=== PATIENT | female | born 1945 | race Caucasian/White ===

== ENCOUNTER 2018-06-25 21:57 | Emergency (ER) | payer MEDICARE, OTHER ==
[~2018-06-25] VITALS: Ht 160 cm; Wt 67.6 kg
[2018-06-25] MEDS ORDERED: LIDOCAINE 1% VIAL ONE (22:10)
[2018-06-25] MEDS ORDERED: WATER ONE (22:11)
--- NOTE | 2018-06-25 22:30 | NUR ---
SUTURES DR WILL AT BEDSIDE TO FLUSH AND SUTURE LACERATION. FLUSHED EXTENSIVELY WITH BETADINE AND SALINE 15 SUTURES TO APPROXIMATE ALL EDGES
[2018-06-25 22:31] VITALS: BP 135/74
[2018-06-25] MEDS ORDERED: KEFLEX PO ONE (22:44)
[2018-06-25] MEDS ORDERED: TYLENOL #3 PO ONE (22:44)
[2018-06-25] MEDS ORDERED: TYLENOL #3 PO STA (22:45)
[2018-06-25] MEDS ORDERED: TRIPLE ANTIBIOTIC OINTMENT TP ONE (22:47)
--- NOTE | 2018-06-25 22:50 | NUR ---
WOUND CARE CLEANSED WITH SALINE, APPLIED NEOSPORIN TO SUTURE LINE COVERED WITH OPTIFOAM GENTLE BORDER VERBAL WOUND INSTUCTIONS GIVEN TO PATIENT
--- NOTE | 2018-06-25 22:52 | ER.PDOC ---
General Chief Complaint: Extremities Stated Complaint: LEG LAC Time seen by MD: 22:00 Source: patient, family Exam Limitations: no limitations History of Present Illness Initial Comments 72 year old white female with left leg laceration. Tripped on a lawnmower and sustained calf injury. Tetanus shot is up to date. Incident happened less than an hour ago Onset: just prior to arrival Where: home Context: fall Severity: moderate Allergies: Coded Allergies: Latex, Natural Rubber (Verified Allergy, Severe, Anaphylaxis Shock, ) Past Medical History Medical History: COPD Surgical History: breast augmentation, cancer surgery LMP (females 10-50): postmenopause Social History Smoking: less than 1 pack/day Alcohol Use: none Drug Use: none Review of Systems Constitutional: no symptoms reported EENTM: no symptoms reported Respiratory: no symptoms reported Cardiovascular: no symptoms reported Gastrointestinal: no symptoms reported Genitourinary: no symptoms reported Musculoskeletal: see HPI Skin: no symptoms reported Psychiatric/Neurological: no symptoms reported Physical Exam General Appearance: Alert, No Apparent Distress Foot: nml inspection, non-tender, nml color/temp, skin intact Ankle: nml inspection, non-tender, nml ROM, no joint swelling, skin intact Knee: nml inspection, non-tender, nml ROM, no joint swelling Thigh/Hip: nml inspection 1 - avulsed laceration 12 cm total Gait: antalgic gait Neuro/Vasc/Tendon: sensation nml, motor nml, no vascular compromise, tendon function nml Skin: warm/dry Head/ENT: nml inspection, pharynx nml Neck/Back: nml inspection, non-tender Abdomen: non-tender, pelvis stable ED LACERATION WOUND REPAIR Wound Location & Length (Requi: left calf Wound Length (cm): 12 Wound cleaned: betadine Distal NVT: neuro intact, vasc intact Anesthesia type: local Anesthesia: 1% Lidocaine Wound's Depth, Shape: flap Wound Explored: no foreign body removed Tendon Intact: Yes Wound Debrided: minimal Wound Repaired With: sutures Suture Size/Type: 4:0, ethilon Suture Style: running Number of Sutures: 15 Sterile Dressing Applied?: Yes Departure Time of Disposition: 22:50 Disposition: 01 HOME, SELF-CARE Impression: Primary Impression: Laceration of leg Qualified Codes: S81.812A - Laceration without foreign body, left lower leg, initial encounter Condition: Stable Referrals: PCP,UNKNOWN (PCP) PRIMARY CARE PROVIDER Comments Tylenol #3 Keflex Watch for signs and symptoms of infection Keep area dry for two days Follow up PCP RTER prn Remove stitches in 10 days Duration or Time Spent with Pa: JOE HESS MD Jun 25, 2018 22:52
[2018-06-25] MEDS ORDERED: KEFLEX PO SCH (23:00)
[2018-06-25 23:01] VITALS: BP 135/74
== END 2018-06-25 23:00 | disposition home or self-care (01) ==
LOC: ER 21:57
DX: S81.812A Laceration without foreign body, left lower leg, initial encounter (principal); J44.9 Chronic obstructive pulmonary disease, unspecified; F17.210 Nicotine dependence, cigarettes, uncomplicated; Z98.890 Other specified postprocedural states; Z91.040 Latex allergy status; W01.198A Fall on same level from slipping, tripping and stumbling with subsequent striking against other object, initial encounter; Y93.89 Activity, other specified; Y92.098 Other place in other non-institutional residence as the place of occurrence of the external cause; Y99.8 Other external cause status
CPT/HCPCS: 12004; 99283; J2001; J3490

== ENCOUNTER 2018-10-10 13:50 | Emergency (ER) | payer MEDICARE, OTHER ==
[~2018-10-10] VITALS: Ht 160 cm; Wt 65.8 kg
[2018-10-10 14:21] VITALS: BP 126/57
--- NOTE | 2018-10-10 14:52 | ER.PDOC ---
General Chief Complaint: Nausea,Vomiting,Diarrhea Stated Complaint: DIARRHEA Time seen by MD: 14:46 Source: patient Exam Limitations: no limitations History of Present Illness Initial Comments Diarrhea for about 4 weeks. No vomiting or abdominal pain. Stools are formed but 7-8 times a day in small quantities. Severity/Quality: moderate Prior symptoms/Treatment: Similar symptoms previous Allergies: Coded Allergies: Latex, Natural Rubber (Verified Allergy, Severe, Anaphylaxis Shock, ) Vital Signs First Vital Signs Date Time Temp Pulse Resp B/P (MAP) Pulse Ox O2 Delivery O2 Flow Rate FiO2 10/10/18 14:17 98.3 100 16 98.3 10/10/18 14:17 95 Room Air 10/10/18 14:21 126/57 (80) Last Vital Signs Date Time Temp Pulse Resp B/P (MAP) Pulse Ox O2 Delivery O2 Flow Rate FiO2 10/10/18 14:21 98.3 100 16 126/57 (80) 95 Room Air 98.3 Past Medical History Medical History: cancer, coronary artery disease Surgical History: breast augmentation, cancer surgery Social History Smoking: greater than 1 pack/day Alcohol Use: none Drug Use: none Constitutional: no symptoms reported EENTM: no symptoms reported Respiratory: no symptoms reported Cardiovascular: no symptoms reported Gastrointestinal: see HPI Genitourinary: no symptoms reported All Other Systems: Reviewed and Negative Physical Exam General Appearance: No Apparent Distress, WD/WN Neck: Non-Tender, Full Range of Motion, Supple, Normal Inspection Respiratory: chest non-tender, lungs clear, normal breath sounds, no respiratory distress, no accessory muscle use Cardiovascular: Normal Peripheral Pulses, Regular Rate, Rhythm, No Edema, No Gallop, No JVD, No Murmur Gastrointestinal: Normal Bowel Sounds, Non Tender, Soft Back: Normal Inspection, No CVA Tenderness, No Vertebral Tenderness Extremities: Normal Range of Motion, Non-Tender, Normal Inspection, No Pedal Edema, No Calf Tenderness, Normal Capillary Refill, Pelvis Stable 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 as Tested, No Motor/Sensory Deficits, Alert, Normal Mood/Affect, Oriented x 3 Skin: Normal Color, Warm/Dry Results/Orders Results/Orders Laboratory Tests Test 10/10/18 14:39 10/10/18 14:57 Urine Collection Type UNKNOWN Urine Color GEORGINA (YELLOW) Urine Appearance CLEAR (CLEAR) Urine Bilirubin NEGATIVE MG/DL (NEGATIVE) Urine Ketones NEGATIVE (NEGATIVE) Urine Specific [place] 1.015 (1.005-1.035) Urine pH 6 (5.0-6.0) Urine Protein 100 mg/dL (NEGATIVE) Urine Urobilinogen 4.0 (NEGATIVE) Urine Nitrate NEGATIVE (NEGATIVE) Urine Leukocyte Esterase 100/ul 1+ (NEGATIVE) Urine Blood 50 2+ (NEGATIVE) Urine RBC 5-10 RBC/HPF (NONE SEEN) Urine WBC 2-5 WBC/HPF (0-2) Urine Squamous Epithelial Cells MANY #/HPF (FEW) Urine Bacteria MODERATE (NONE SEEN) Urine Coarse Granular Casts 2-5 #/LPF Urine Glucose NORMAL (NEGATIVE) White Blood Count 23.7 10^3/uL (4.5-11.0) Red Blood Count 6.39 10^6/uL (4.00-5.20) Hemoglobin 18.4 g/dL (12.0-15.0) Hematocrit 55.0 % (36.0-46.0) Mean Corpuscular Volume 86.1 fL (78-100) Mean Corpuscular Hemoglobin 28.8 pg (26-34) Mean Corpuscular Hemoglobin Concent 33.5 g/dL (33-37) Red Cell Distribution Width 14.7 % (11.5-14.5) Platelet Count 243 10^3/uL (150-400) Mean Platelet Volume 9.5 fL (7.8-11.0) Neutrophils (%) (Auto) 92.8 % (41.0-85.0) Lymphocytes (%) (Auto) 1.2 % (24.0-44.0) Monocytes (%) (Auto) 4.4 % (5.0-12.0) Neutrophils # (Auto) 22.0 10^3/uL (1.8-7.7) Lymphocytes # (Auto) 0.3 10^3/uL (1.0-4.8) Monocytes # (Auto) 1.0 10^3/uL (0.3-0.8) Absolute Immature Granulocyte (auto 0.32 10^3 u/L (0-2) Eosinophils % 0.3 % (0.0-5.0) Basophils % 0.0 % (0.0-0.2) Basophils # 0.0 10^3/uL (0.0-0.1) Eosinophil Count 0.1 10^3/uL (0.0-0.2) Sodium Level 128 mmol/L (132-145) Potassium Level 3.0 mmol/L (3.6-5.2) Chloride Level 87.0 mmol/L (96-109) Carbon Dioxide Level 34.8 mmol/L (20.0-32) Anion Gap 9.2 Blood Urea Nitrogen 14 mg/dL (7-18) Creatinine 0.87 mg/dL (0.59-1.40) Estimated GFR () 77.2 (>/=60) BUN/Creatinine Ratio 16.0 Glucose Level 132 mg/dL (70-110) Calcium Level 8.9 mg/dL (8.4-10.5) Total Bilirubin 1.0 mg/dL (0.2-1.0) Aspartate Amino Transf (AST/SGOT) 13 U/L (0-35) Alanine Aminotransferase (ALT/SGPT) 21 U/L (12-78) Alkaline Phosphatase 89 U/L (50-136) Total Protein 6.1 g/dL (6.4-8.2) Albumin 2.3 g/dL (3.4-5.0) Globulin 3.8 Percent Immature Gran (Cell Imm) 1.30 % (0.00-0.50) Progress Progress Patient declined to have a CT scan of the abdomen/pelvis Patient declined admission, signed and left against medical advice. Patient understands that leaving AMA may result in sepsis, worsening condition and . Gave him a script for Cipro, Flagyl and Lomotil. Departure Time of Disposition: 16:10 Disposition: 07 AGAINST MEDICAL ADVICE Impression: Primary Impression: Intractable diarrhea Additional Impression: Leukocytosis Condition: Against Medical Advice Referrals: PCP,UNKNOWN (PCP) PRIMARY CARE PROVIDER Duration or Time Spent with Pa: 60 mins Problem Qualifiers Additional Impression: Leukocytosis Leukocytosis type: unspecified Qualified Codes: D72.829 - Elevated white blood cell count, unspecified CAYETANO CARMONA MD Oct 10, 2018 14:52
[2018-10-10 15:04] LABS: EOSINOPHIL # 0.1 10^3/uL (0.0-0.2); EOSINOPHIL % 0.3 % (0.0-5.0); HEMOGLOBIN 18.4 g/dL (12.0-15.0); LYMPHOCYTES # 0.3 10^3/uL (1.0-4.8); LYMPHOCYTES % 1.2 % (24.0-44.0); MEAN CELL HGB 28.8 pg (26-34); MEAN CELL HGB CONCENTRATION 33.5 g/dL (33-37); MEAN CORP VOLUME 86.1 fL (78-100); MEAN PLATELET VOLUME 9.5 fL (7.8-11.0); MONOCYTES % 4.4 % (5.0-12.0); NEUTROPHILS % 92.8 % (41.0-85.0); RED CELL DISTRIBUTION WIDTH 14.7 % (11.5-14.5); WHITE BLOOD CELL 23.7 10^3/uL (4.5-11.0)
[2018-10-10 15:05] LABS: BILIRUBIN,URINE NEGATIVE (NEGATIVE)
[2018-10-10 15:13] LABS: APPEARANCE,URINE CLEAR (CLEAR); UA COLOR AMBER (YELLOW)
[2018-10-10 15:25] LABS: CALCIUM 8.9 mg/dL (8.4-10.5); CARBON DIOXIDE 34.8 mmol/L (20.0-32)
[2018-10-10 16:20] VITALS: BP 127/49
[2018-10-10 18:17] LABS: BAND NEUTROPHILS 7 % (2-6); DIFFERENTIAL COMMENT NORMAL; LYMPHOCYTE 4 % (25-36); MONOCYTE 5 % (3-9); SEGMENTED NEUTROPHILS 84 % (31-76)
== END 2018-10-10 16:21 | disposition left against medical advice (07) ==
LOC: ER 13:50
DX: R82.90 Unspecified abnormal findings in urine (principal); I25.10 Atherosclerotic heart disease of native coronary artery without angina pectoris; R19.7 Diarrhea, unspecified; R11.2 Nausea with vomiting, unspecified; D72.829 Elevated white blood cell count, unspecified; F17.210 Nicotine dependence, cigarettes, uncomplicated; Z91.040 Latex allergy status
CPT/HCPCS: 36415; 80053; 81000; 82272; 83630; 85025; 87040; 87045; 87077; 87086; 87186; 99283